=== PATIENT | female | born 1985 | race Caucasian/White ===

== ENCOUNTER 2024-04-25 10:06 | Emergency (ER) | payer OTHER ==
[~2024-04-25] VITALS: Ht 154.9 cm; Wt 91.0 kg
[2024-04-25 10:13] VITALS: O2SAT 99
[2024-04-25 11:10] LABS: BASOPHILS % 0.5 % (0.0-2.0); HEMATOCRIT. 39.6 % (36.0-48.0); HEMOGLOBIN. 12.9 g/dL (12.0-16.0); LYMPHOCYTES % 30.5 % (20.0-50.0); MEAN CORPUSCULAR HEMOGLOBIN 27.4 pg (28.0-32.0); MEAN CORPUSCULAR HGB CONC 32.7 g/dL (31.0-37.0); MEAN CORPUSCULAR VOLUME 83.7 fL (81.0-99.0); MEAN PLATELET VOLUME 7.6 fl (7.4-10.4); MONOCYTES % 5.7 % (2.0-8.0); NEUTROPHILS % 59.3 % (40.0-76.0); PLATELET 284 x1000/uL (130-400); RED BLOOD CELL COUNT 4.73 mill/uL (4.2-5.4); RED CELL DISTRIBUTION WIDTH 15.1 % (11.6-14.6); WHITE BLOOD COUNT 6.6 x1000/uL (4.5-11.0)
[2024-04-25 11:21] LABS: CHLORIDE 106 mEq/L (98-107); POTASSIUM 4.1 mEq/L (3.5-5.1); SODIUM 139 mEq/L (136-145)
[2024-04-25 11:22] LABS: CARBON DIOXIDE 27 mEq/L (21-32)
[2024-04-25 11:23] LABS: CALCIUM 9.4 mg/dL (8.7-10.4)
[2024-04-25 11:27] LABS: CREATININE 0.5 mg/dL (0.6-1.0)
[2024-04-25 11:28] LABS: GLUCOSE 99 mg/dL (70-105); UREA NITROGEN BLOOD 5 mg/dL (9-23)
[2024-04-25 11:29] LABS: ALANINE AMINOTRANSFERASE 28 IU/L (10-49); ALBUMIN 4.3 g/dL (3.2-4.8); ASPARTATE AMINOTRANSFERASE 20 IU/L (<34)
[2024-04-25 11:30] LABS: BILIRUBIN DIRECT 0.1 mg/dL (<=3.0); BILIRUBIN TOTAL 0.4 mg/dL (0.1-1.0); PROTEIN TOTAL 7.4 g/dL (6.0-8.3)
[2024-04-25 11:44] LABS: HCG SCREEN NEGATIVE
[2024-04-25] MEDS ORDERED: KETOROLAC 30MG/ML VIAL IM ONE (12:45)
[2024-04-25] MEDS ORDERED: HYDROCODONE/ACETAMINOPHEN 5/325MG TABLET PO ONE (12:45)
[2024-04-25] MEDS: HYDROCODONE/ACETAMINOPHEN 5/325MG TABLET PO NR (14:51)
[2024-04-25] MEDS: KETOROLAC 30MG/ML VIAL IM NR (14:52)
[2024-04-25 15:09] LABS: COLOR URINE BLOODY (YELLOW)
[2024-04-25 15:10] LABS: CLARITY URINE TURBID (CLEAR); GLUCOSE URINE NEGATIVE (NEGATIVE); KETONES URINE TRACE (NEGATIVE); OCCULT BLOOD URINE 3+ (NEGATIVE); PROTEIN URINE 3+ (NEGATIVE)
[2024-04-25 15:11] LABS: LEUKOCYTE ESTERASE URINE TRACE (NEGATIVE); NITRITE URINE POSITIVE (NEGATIVE)
[2024-04-25 15:15] LABS: RBC URINE TNTC /hpf (0-2)
[2024-04-25 15:17] LABS: BACTERIA URINE TRACE; SQUAMOUS EPITHELIAL CELL URINE NONE SEEN /lpf (RARE/1+)
[2024-04-25] MEDS ORDERED: NAPR500T7 MT (16:34)
[2024-04-25] MEDS ORDERED: TOPUD PO (16:34)
[2024-04-25] MEDS ORDERED: HYDR-4001 MT (17:05)
[2024-04-25 17:22] VITALS: BP 114/70; PULSE 72; RESP 18; TEMP 36.78072; O2SAT 99
== END 2024-04-25 17:23 | disposition home or self-care (01) ==
LOC: ER 10:06
DX: R10.84 Generalized abdominal pain (principal); R11.2 Nausea with vomiting, unspecified
CPT/HCPCS: 99285; 76770; 76830; 80076; 80048; 81003; 81025; 84703; 85025; 36415; 76856; 96372; 76857; J1885